=== PATIENT | female | born 1990 | race Caucasian/White ===

== ENCOUNTER 2024-06-08 00:41 | Day surgery (SDC) | payer OTHER, SELFPAY ==
--- NOTE | 2024-05-26 16:30 | SUR.PREOP ---
Report to the Outpatient Waiting Room, entrance under the green pavilion located off [facility], at time _1130_ on date _06/08/2024_. Planned Procedure Time: _1330_.? Time changes happen often and if your time is changed the preop area will call you the afternoon before. - You and your visitor will be asked to self-screen and do not enter if you have any COVID symptoms. Please call surgeon if you need to reschedule. - A mask is optional within the hospital at this time. Patients may have clear liquids (water, carbonated beverages, clear teas, apple juice) until 3 hours (1030) prior to surgery with a maximum of 20 ounces. - No food from midnight until time of surgery and no smoking. This includes no chewing gum, candy or mints. - Infants may have breast milk until 4 hours before surgery, formula 6 hours prior to surgery. - Children will be allowed to drink immediately following surgery.? If applicable, please bring a bottle or sippy cup to assist with drinking. Juice, water, soda, and popsicles are readily available.? For infants on formula, please bring formula the day of surgery.? Pacifiers are allowed. Take only the following medications with a SIP of water on the morning of surgery: _NA_ DO NOT STOP ANY OF YOUR OTHER PRESCRIPTION MEDICATIONS PRIOR TO SURGERY EXCEPT THE FOLLOWING Medications to discontinue per physician _NA_ Date to take last dose_NA_ Please no make-up, nail tajik, hairspray, perfume, deodorant, or body powder the day of surgery.? No jewelry (including any body piercings) or valuables the day of surgery, leave them at home.? Please take a shower or bath the night before, or the morning of, surgery with an antibacterial soap.? Wear comfortable, loose fitting clothing.? Children are encouraged to wear pajamas. - Jewelry must be removed prior to entering the operating room.? Rings and piercings that are not removed may be cut off. - The hospital will not accept responsibility for valuables.? - Please leave all valuables, including medications, at home the day of surgery. If you are going home after surgery, a licensed grab driver must drive you home.? - NO public transportation without another adult if you receive anesthesia. - We recommend that an adult stay with you for 24 hours following discharge. - We also recommend that you do not drive, make important decision, drink alcoholic beverages, or take any drugs that were not prescribed by your health care provider for at least 24 hours after your discharge time. For Pediatric surgeries, we recommend two adults accompany the child home. Follow any additional instructions given to you from your surgeon. Telephone instructions given to _Yvonne_and asked if any additional questions and then verbalized understanding. Patient advised to call surgeon office or pre surgery nurse liaison [phone] if any additional questions.
[2024-05-26 16:41] VITALS: BMI 36.8
[2024-06-08] VITALS (9 sets, daily range): BP systolic 124–160; BP diastolic 76–92; PULSE 68–92; RESP 15–20; TEMP 36.1–37.1; O2SAT 97–100
--- NOTE | 2024-06-08 09:44 | PM.IMHP ---
H&P: HPI History of Present Illness Date/Time: 06/08/24 09:44 Chief Complaint: desires sterilization Narrative: Patient is a 33 year old female who presents for laparoscopic bilateral salpingectomy. She does not desire future childbearing and would like permanent sterilization. She understands this procedure is not reversible. No PSH. She denies abdominal pain, nausea, vomiting, diarrhea, or constipation. Review of Systems Review of Systems: All systems reviewed & are unremarkable except as noted in HPI and below PMFSH Social History Social History Smoking status: Never smoker Second hand tobacco smoke exposure: No Alcohol intake: current Alcohol use details: OCCASIONAL Substance use: never Substance use type: does not use Living arrangements: with family Additional living arrangements comments: with Spiritual care concerns: No Meds Home Medications and Allergies Home Medications ?Medication ?Instructions ?Recorded ?Confirmed ?Type levonorgestrel-ethinyl estradiol 1 tablet PO DAILY 05/26/24 06/08/24 History 0.1 mg-20 mcg tablet (Vienva) Allergies Allergy/AdvReac Type Severity Reaction Status Date / Time legumes Allergy Severe Anaphylaxis Verified 06/08/24 09:56 amoxicillin Allergy Intermediate Nausea and Verified 06/08/24 09:56 Vomiting Exam Const: General: comfortable and no acute distress HENMT: Mouth: Yes moist mucous membranes Resp: Effort & Inspection: normal respiratory effort Cardio: Rate: regular rate Skin: General skin exam: normal color Extrem: General: normal to inspection Psych: Mental Status: mental status grossly normal Assessment and Plan Assessment and plan (1) Encounter for sterilization: Code(s): Z30.2 - Encounter for sterilization Status: Acute Assessment and Plan: - patient does not desire future childbearing - desires permanent sterilization; patient understands this procedure is not reversible - will proceed with laparoscopic bilateral salpingectomy
[2024-06-08 10:03] LABS: BEDSIDEPREGUCG Negative (Negative)
[2024-06-08] MEDS: ACETAMINOPHEN 500 MG TABLET 1000 MG PO (10:20)
--- NOTE | 2024-06-08 10:31 | WPDHPUPDATE1 ---
History and Physical Update Update Date/Time: 06/08/24 10:31 History and Physical has been reviewed, including an updated exam of the patient. There are NO changes in the patient's condition. Risks, benefits, and alternatives have been discussed and questions answered. Patient agrees to proceed with procedure.
[2024-06-08] MEDS: LACTATED RINGERS 1,000 ML 30 ML IV CONT ×2 (10:32→12:12)
[2024-06-08] MEDS: KETOROLAC 15 MG/ML VIAL (*BKC) IV PUSH (10:35)
--- NOTE | 2024-06-08 10:44 | WPDANESEPPF ---
Anes - Initial Pre Proc Eval Procedure: Operation Date: 06/08/24 11:30 Proposed Procedures p Laparoscopic Bilateral Salpingectomy - Reyes Yen MD Date/Time: 06/08/24 10:44 Surgeon: Reyes Yen MD Pre Op Diagnosis: Sterilization Requested Patient Data Age: 33 Gender: F Height: 1.7 m Weight: 109.4 kg Last Vital Signs Temp 37.1 C 06/08/24 09:57 Pulse 92 06/08/24 09:57 Resp 20 06/08/24 09:57 BP 143/76 H 06/08/24 09:57 Pulse Ox 98 06/08/24 09:57 O2 Del Method Room Air 06/08/24 09:57 Allergies Allergy/AdvReac Type Severity Reaction Status Date / Time legumes Allergy Severe Anaphylaxis Verified 06/08/24 09:56 amoxicillin Allergy Intermediate Nausea and Verified 06/08/24 09:56 Vomiting Home Medications ?Medication ?Instructions ?Recorded ?Confirmed ?Type levonorgestrel-ethinyl estradiol 1 tablet PO DAILY 05/26/24 06/08/24 History 0.1 mg-20 mcg tablet (Vienva) oxycodone 5 mg tablet 5 mg PO Q4H PRN Pain #10 tabs 06/08/24 Rx Laboratory Tests 06/08/24 10:02 POC Urine HCG, Qual Negative (Negative) Patient hx anesthesia problems: none Family hx anesthesia problems: none Results Review: All pre-operative results and documents have been reviewed as part of the pre-operative evaluation. [facility] Social History Social History Smoking status: Never smoker Second hand tobacco smoke exposure: No Alcohol intake: current Alcohol use details: OCCASIONAL Substance use: never Substance use type: does not use Living arrangements: with family Additional living arrangements comments: with Spiritual care concerns: No Anes - Eval Final PreProcedure Day of Procedure 06/08/24 10:44 Patient weight: obese Heart: regular rate and rhythm Lungs: clear to auscultation Airway: Mallampati scale class II Neurological: alert and oriented Last oral intake: >/= 8 hours ASA classification: II Emergent: no Anesthetic plan: proceed Anesthesia type and monitoring: general ETT and standard monitoring Results Review: All pre-operative results and documents have been reviewed as part of the pre-operative evaluation. Informed Consent: The patient's anesthetic plan and its attendant risks and benefits were discussed with the patient/family/POA. Questions were solicited and answers provided to the satisfaction of the patient/family/POA.
[2024-06-08] MEDS: SCOPOLAMINE 1 MG PATCH 1 PATCH TRANSDERM (10:49)
--- NOTE | 2024-06-08 11:25 | W.PM.PROC2 ---
Procedure Note - Detailed Date of Procedure 06/08/24 Pre-op Diagnosis Sterilization Requested Post-op Diagnosis Same Procedure Performed laparoscopic bilateral salpingectomy Surgeon Reyes Yen MD Anesthesia General Findings normal appearing bilateral fallopian tubes and ovaries; small pedunculated fibroid on uterine fundus; normal appendix and RUQ Description of Procedure With IV fluids infusing, the patient was taken to the operating room. The patient was placed in supine position. General anesthesia with endotracheal intubation was given. A time-out took place. The patient was placed in dorsal lithotomy position using Rigoberto stirrups and she was prepped and draped in the usual sterile fashion. The bladder was drained using a red rubber catheter. A sterile speculum was placed vaginally, the anterior lip of the cervix was grasped with a single-tooth tenaculum and the acorn uterine manipulator was placed without difficulty. The speculum was removed. The surgeon's gloves were changed and attention was turned to the abdomen. A 5 mm incision was made in the umbilicus. Under direct visualization with the scope, the umbilical port was inserted without difficulty. Another two trocars were placed under direct visualization in the left upper and lower quadrants. The patient was placed in Trendelenburg and inspection of the pelvis noted the above findings. Appropriate pictures were taken. Using the LigaSure devise, a left salpingectomy was performed in the usual fashion. Care was taken to avoid the IP ligament. The salpingectomy went smoothly. The same procedure was repeated on the right side. The instruments were all removed from the abdomen and the CO2 gas was allowed to escape. The three skin incisions were reapproximated with 4-0 Polysorb in a subcuticular manner, followed by skin glue. The acorn manipulator and single tooth tenaculum was removed from the uterus and cervix, respectively. The tenaculum sites were hemostatic. All instruments were removed from the vagina. At the end of the case, instrument, sponge and needle counts were correct x 2. The patient was awakened from general anesthesia and was taken to PACU in stable condition. Estimated Blood Loss 5 Pathology Yes Complications No immediate complications Condition Stable Disposition Same day
[2024-06-08] MEDS: oxyCODONE HCL (*CRX) 5 MG TAB IR PO (12:39)
--- OUTSIDE RECORDS SUMMARY | 2024-06-11 11:08 | XMS_ITS ---
Care Plan - [facility] Created on: June 11, 2024 CEASAR NG : 1990 Sex: Female Author Organization [facility] Address [address] [place] [address] Phone Care Team Providers Care Bicycle Messenger Name Role Phone Unavailable Unavailable Unavailable
--- OUTSIDE RECORDS SUMMARY | 2024-06-11 11:08 | XMS_ITS | Data Portability ---
Author Organization [facility] Address [address] [place] [address] Care Team Providers Care Press Loader Name Role Phone VINITA LEON Primary Care Provider Assessment Encounter Date Assessment Date Assessment LastModified by Organization Details LastModified Time 08/09/2021 08/09/2021 Annual gynecological exam performed. Patient will come back in a year unless there are new symptoms. Suggest Calcium with Vitamin D if not eating in diet. Patient advised to get annual flu shot. Recommend yearly physicals and perform monthly breast exams. Genetic testing is available for patients with family history of cancer. Engage in safe sexual practices, use condoms. Encouraged to have daily exercise. Avoid tobacco and illicit drugs, moderation of alcohol. If BMI greater than 25 dietary consult advised. If you have any questions please call or email. pt will continue to monitor, does not desire intervention at this time, and if pain increases will f/u with MD for excision [email or web address] Not available 08/09/2021 18:40:39 08/30/2022 08/30/2022 Annual gynecological exam performed. Patient will come back in a year unless there are new symptoms. [email or web address] Not available 08/30/2022 09:39:08 09/05/2023 09/05/2023 Annual gynecological exam performed. Patient will come back in a year unless there are new symptoms. [email or web address] Not available 09/05/2023 16:51:54 Plan of Treatment Reminders Order Date Submit Date Provider Last Modified By Organization Details Last Modified Time Details Appointments SURG POST OP 2024 09:00A Karime TAYLOR MD Not available Not available Not available Lab None recorded. Referral None recorded. Procedures None recorded. Surgeries salpingec kike, laparosco pic (SURG) [address] Surgery [facility], [address], [address], 05/21/2024 14:51:49 Imaging None recorded. Medication Orders Sronyx 0.1 mg-20 mcg tablet 2021 022 [facility] [address] In [facility], [address] [place] [address], [address], 08/09/2021 18:38:26 nystatin- triamcino lone 100,000 unit/gram -0.1 % topical ointment 2021 022 [email or web address] [facility] [address] [place] [address], [address], 08/10/2021 09:45:01 Vienva 0.1 mg-20 mcg tablet 2022 023 [id number], [address], [place], [place], [id number], 08/30/2022 09:48:36 Vienva 0.1 mg-20 mcg tablet 2023 024 [id number], [address], [place], [place], [id number], 09/05/2023 17:04:09 Patient TargetsNo targets recorded. Patient InstructionsNo instructions recorded. Reason for Referral None Reported. Results Created Date Observation Date Name Description Value Unit Range Abnormal Flag Note LastModifiedBy Organization Detail LastModifiedTime 08/11/1908/10/2021 IMAGE GUIDE D PAP, REFLE X HPV IF ASCUS ONLY image guided Pap, reflex HPV ASCUS only SEE RESULT S BELOW CASE REPOR T: Cytol ogy Gynec ologi bernard Repor t Case: [id number] Autho carla rhodes Provi katherine: Zayda Mathis NP Colle cted: 08/10 0954 Order ing Locat ion: [place] [facility] Recei maryann: 08/11 0020 First Scree n: Myles Vasquez ed, CT Rescr een: Tobias vásquez, Kelly flores, CT Speci men: Scree naeem Pap - Image d, Cervi x STATE MENT OF ADEQU ACY: Satis facto ry for evalu ation Trans forma tion zone compo nent absen t The absen ce of an endoc ervic al compo nent was confi rmed by an addit ional scree ner. FINAL DIAGN OSIS: Negat mike for Intra epith elial Lesio n or Joleen damico (NIL) . Elect anny yuliet bill d by Tobias vásquez, Kelly flores, CT on 2021 at 9:40 PM ----- ----- ----- ----- ----- ----- ----- ----- ----- ----- ----- ----- ----- ----- ----- ----- ----- ---- COMME NT: Note: This speci men was revie wed by a Cytot echno logis t and/o r Patho logis t (as indic ated in this repor t) after evalu ation using the Thinp rep Imagi ng Syste m. CLINI BERNARD INFOR MATIO N: Menst rual Statu s: LMP (if appli cable ): Clini bernard Histo ry/Pr eviou s Pap: Type of Neopl gui (if appli cable ): Signi fican t Clini bernard Findi ngs: Other Histo ry: Hormo paul (if appli cable ): PAP EDUCA ELIAS L NOTE: The Pap Test is a scree naeem test with an inher ent false negat mike rate. Liqui d-bas ed sampl ing may decre ase, but will not elimi nicol, false negat mike resul ts. A negat mike resul t does not precl ude the prese nce and/o r devel opmen t of disea se, since the prese nce of abnor mal cells in the sampl e depen ds on the locat ion of the lesio n and sampl ing techn ique. Blaise nued regul ar scree naeem is the best metho d of cance r preve ntion . If repor vianca cytol ogic findi ng do not corre late with physi bernard and/o r histo rical findi ngs, furth er inves tigat ion is recom ronaldo d, as clini clarice warra nted. Not Available [facility] (Lab) [address] [facility], [place], [address], 08/17/2021 22:44:11 Result Notes None recorded. Problems Name Problem SNOMED Code Status Onset Date Resolution Date Notes Provider Name and Address Organization Details Recorded Time Specializ ed medical examinati on Active 2013 Routine gynecologi bernard examinatio n;Practice ID: 0001 Not Available [facility] 0 15:08:57 Screening for malignant neoplasm of cervix Active 2013 Pap Smear;Prac minerva ID: 0001 Not Available [facility] 0 15:08:57 Adult health examinati on Active 2014 Routine general medical examinatio n at a health care facility;P jantice ID: 0001 Not Available [facility] 0 15:08:[address] Concept Active 2015 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) (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) w/o abn findings;P ractice ID: 0001 Not Available [facility] 0 15:08:57 Sexual function painful Active 2018 Unspecifie d dyspareuni a;Practice ID: 0001 Not Available [facility] 0 15:08:57 test negative [id number] Active 2018 Encounter for test, result negative;P jantice ID: 0001 Not Available [facility] 0 15:08:57 Family planning surveilla nce Active 2011 Contracept mike surveillan ce, unspecifie d;Recorded Elsewhere: No Locatio n: [facility]: EHR Chroni c: N Practice ID: 0001 Billa ble Time: 11:00:00 AM Not Available [facility] 0 15:08:[address] Concept Active 2016 Encntr for general adult medical exam w/o abnormal findings;R ecorded Elsewhere: No Locatio n: [facility]: EHR Chroni c: N Practice ID: 0001 Billa ble Time: 01:30:00 PM Not Available [facility] 0 15:08:58 Atypical squamous cells of undetermi rosalie significa nce on cervical Papanicol aou smear [id number] Active 2011 Papanicola ou smear of cervix with atypical squamous cells of undetermin ed significan ce (ASC-US);R ecorded Elsewhere: No Locatio n: [facility]: EHR Chroni c: N Practice ID: 0001 Billa ble Time: 11:00:00 AM Not Available [facility] 0 15:08:58 Problem Notes None recorded. Procedures Surgical History Date Name Laterality Status Provider Name and Address Organization Details Recorded Time 4 Date of Last Pap Smear completed uMna Tanner [facility] 04/22/2024 14:32:52 6 extraction of wisdom tooth completed Marlen Russo [facility] 08/09/2021 20:23:59 Imaging Results None recorded. Procedure Notes None recorded. Medical Equipment None Reported. Allergies Allergen ID Allergen Name Allergen Category Reaction Reaction Severity Criticality Documentation Date Start Date Code Code System Note Provider Name and Address Organization Details Recorded Time 91581 peanut allergeni c extract food,medi cation Not available Not available Not available 05/06/2020 72011 8 RxNorm Comme nt: [facility]; Not Available [facility] 0 14:14:50 44127 amoxicill in medicatio n Not available Not available Not available 05/06/2020 723 RxNorm Comme nt: Locat [facility]: [facility]; Not Available [facility] 0 14:14:50 Medications Name Sig Start Date Stop Date Status Note LastModified by Organization Details LastModified Time doxycycli ne hyclate 100 mg capsule 09/04 completed Not Available Not Available Not Available azithromy yunier 250 mg tablet TAKE 2 TABLETS BY MOUTH FOR 1 DAY THEN TAKE 1 TABLET BY MOUTH DAILY FOR 4 DAYS 09/04 completed Not Available Not Available Not Available ofloxacin 0.3 % eye drops INSTILL 2 DROPS IN RIGHT EYE FOUR TIMES DAILY FOR 7 DAYS 09/04 completed Not Available Not Available Not Available nystatin 100,000 unit/gram topical ointment APPLY TO AFFECTED AREA TWICE A DAY 08/30 completed Not Available Not Available Not Available fluconazo le 150 mg tablet 08/30 completed Not Available Not Available Not Available benzonata te 200 mg capsule 09/04 completed Not Available Not Available Not Available nystatin- triamcino lone 100,000 unit/gram -0.1 % topical ointment APPLY TO THE AFFECTED AREA(S) BY TOPICAL ROUTE 2 TIMES PER DAY 2021 active Not Available Not Available Not Avai lable triamcino lone acetonide 0.1 % topical ointment APPLY THIN COAT TO AFFECTED AREA TWICE A DAY 08/30 completed Not Available Not Available Not Available methylpre dnisolone 4 mg tablets in a dose pack FOLLOW PACKAGE DIRECTIO NS 09/04 completed Not Available Not Available Not Available fluticaso ne propionat e 50 mcg/actua tion nasal spray,kaushik pension SHAKE LIQUID AND USE 2 SPRAYS IN EACH NOSTRIL DAILY 09/04 completed Not Available Not Available Not Available dicyclomi ne 10 mg capsule 09/04 completed Not Available Not Available Not Available neomycin- polymyxin -hydrocor t 3.5 mg-10,000 unit/mL-1 % ear drops,kaushik p SHAKE LIQUID AND INSTILL 2 DROPS TO LEFT EAR FOUR TIMES DAILY FOR 7 DAYS 09/04 completed Not Available Not Available Not Available Nuvessa 1.3 % (65 mg/5 gram) vaginal gel insert 1 applicat orful by vaginal route once at bedtime 04/25 completed Prescrib ed Elsewher e: No Locat ion: [facility] M odify By: cfrieder ich Enco unter DateTime : 11/20/19 02:54:59 PM Not Available Not Available Not Available Vienva 0.1 mg-20 mcg tablet TAKE 1 TABLET BY MOUTH EVERY DAY active Not Available Not Available No t Available Vitals Date Recorded Body height Body mass index (BMI) Body weight Systolic blood pressure Diastolic blood pressure Provider Name and Address Organization Details Last Updated DateTime 08/09/2021 170.18 cm 34.9 kg/m2 125395.1 g 129 mm[Hg] 83 mm[Hg] Marlen Russo [facility] 18:15:23 Date Recorded Body height Body mass index (BMI) Body weight Provider Name and Address Organization Details Last Updated DateTime 08/30/2022 170.18 cm 37.3 kg/m2 391164.7 g Claudia Chopra [facility] 08/30/2022 09:39:31 Date Recorded Systolic blood pressure Diastolic blood pressure Provider Name and Address Organization Details Last Updated DateTime 08/30/2022 132 mm[Hg] 80 mm[Hg] Fay Hinojosa, [facility]- [address], [place], [address], [facility] 08/30/2022 10:50:00 Date Recorded Body height Body mass index (BMI) Body weight Systolic blood pressure Diastolic blood pressure Provider Name and Address Organization Details Last Updated DateTime 09/05/2023 170.18 cm 36.8 kg/m2 856702.2 1 g 119 mm[Hg] 78 mm[Hg] Muna Tanner [facility] 4 16:52:20 Date Recorded Body height Body mass index (BMI) Body weight Systolic blood pressure Diastolic blood pressure Provider Name and Address Organization Details Last Updated DateTime 04/22/2024 170.18 cm 37.1 kg/m2 023711.3 9 g 143 mm[Hg] 86 mm[Hg] Muna Tanner [facility] 4 14:32:18 Social History Question Answer Notes LastModified by Organizat ion Details LastModified Time Tobacco Smoking Status Never Smoker Claudia Keysha [facility] 08/30/2022 09:40:58 Do You Have An Advance Directive? No Information n ot available 08/09/2021 What Is Your Level Of Alcohol Consumption? Occasional [email or web address] Information not available 08/09/2021 How Many Years Have You Consumed Alcohol? 7 [email or web address] Information not available 08/09/2021 Are You Blind Or Do You Have Difficulty Seeing? No [email or web address] Information n ot available 08/09/2021 What Is Your Level Of Caffeine Consumption? Moderate [email or web address] Information not available 08/09/2021 How Much Tobacco Do You Chew? None [email or web address] Information not available 08/09/2021 In The 14 Days Before Symptom Onset, Have You Had Close Contact With A Laboratory-confirm ed COVID-19 While That Case Was Ill? No [email or web address] Information n ot available 08/09/2021 In The 14 Days Before Symptom Onset, Have You Had Close Contact With A Person Who Is Under Investigation For COVID-19 While That Person Was Ill? No [email or web address] Information not available 08/09/2021 Have You Been To An Area Known To Be High Risk For COVID-19? No [email or web address] Information not available 08/09/2021 Are You Deaf Or Do You Have Serious Difficulty Hearing? No [email or web address] Information not available 08/09/2021 What Type Of Diet Are You Following? REGULAR [email or web address] Information n ot available 08/09/2021 What Is The Highest Grade Or Level Of School You Have Completed Or The Highest Degree You Have Received? 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 Yes [email or web address] Information not available 08/09/2021 Do You Use Protection During Sex? Always [email or web address] Information not available 08/09/2021 Do You Use Your Seat Belt Or Car Seat Routinely? Yes [email or web address] Information not available 08/09/2021 Do You Have Smoke And Carbon Monoxide Detectors In Your Home? Yes [email or web address] Information not available 08/09/2021 How Much Tobacco Do You Smoke? No Information not available 08/09/2021 Do You Feel Stressed (tense, Restless, Nervous, Or Anxious, Or Unable To Sleep At Night)? [id number] [email or web address] Information not available 08/09/2021 Do You Use Any Illicit Or Recreational Drugs? No [email or web address] Information not available 08/09/2021 Do You Use Sunscreen Routinely? Yes [email or web address] Information not available 08/09/2021 Have You Used IV Drugs? No Information not available 08/09/2021 Sex: Unknown Functional Status Question Answer Note LastModified by Organizat ion Details LastModified Time Are you able to walk? YESWOREST [email or web address] Information not available 08/09/2021 What is your exercise level? Occasional [email or web address] Information not available 08/09/2021 Mental Status None recorded. Family History Relationship Description Onset Age of this Age Resolved Age Notes LastModified by Organization Details LastModified Time Maternal Grandfather Diabetes mellitus [email or web address] Not available 08/09 20:23:06 Maternal Grandfather Hypertensive disorder Not available 08/09 20:23:18 Maternal Grandfather Heart disease Not available 08/09 20:23:29 Paternal Grandfather Diabetes mellitus [email or web address] Not available 08/09 20:23:06 Paternal Grandfather Hypertensive disorder [email or web address] Not available 08/09 20:23:18 Paternal Grandfather Heart disease Not available 08/09 20:23:29 Paternal Grandmother Malignant tumor of breast Not available 08/09 20:23:40 Medical History Condition Response Allergies (Food, seasonal, environmental ) Y Heart Problems N Other N Blood Transfusion N Drug/Latex Allergies/Reactions Y Breast Cancer N Kidney or Bladder Problems N Dermatologic Disorders N Lung Disease N Defects or Inherited Disease N Breast Problem N Eating Disorder N Anemia N Hematologic disorders N Anesthesia Complications N History of STI N Art (IVF or FET) N Deep Vein Thrombosis N Polycystic ovary syndrome N Psychiatric Illness N Anxiety Disorder N Ovarian Cancer N Diabetes N Autoimmune disease N Pulmonary (TB, Asthma) N Hepatitis/Liver Disease N Arthritis N Infertility N Polyps N Acid Reflux (GERD) N History of abnormal pap Y Cancer N No Past Medical History N Abuse/Domestic Violence N Asthma Y Neurologic/Epilepsy N High Cholesterol N Depression/ depression N Pre-Eclampsia N Hypertension N Osteoporosis N Kidney Disease N Gynecological History Statement/Question Response Abnormal Pap Y Date of Last Mammogram Flow Light Date of LMP 04/22/2024 Was last menstrual period normal Y STIs/STDs N HPV Vaccine N Duration of Flow (days) 4 Current Control Method BCPs Are cycles usually normal Y Frequency of Cycle (Q days) 28 Most Recent Bone Density Sexually Active? Y BCPs Age of first menstrual cycle 14 Date of Last Pap Smear 09/05/2023 Sexual Problems? Y Desired Control Method BCPs LMP Approximate N Obstetrics History GPAL:G 0 P 0 0 0 0 Type Value Living 0 Total 0 Past Encounters Encounter ID Performer Location Encounter Start Date Encounter Closed Date Diagnosis/Indication Diagnosis SNOMED-CT Code Diagnosis ICD10 Code Diagnosis Note [id number] [facility] [address] [address] 07/16/2020 09:48:32 07/16/2020 10:25:20 Gynecologic examination [id number] Z01.419 Take Calcium with Vitamin D 1200mg daily if not receiving in daily diet. It is strongly advised to have an annual flu shot and up can obtain at most pharmacies . If you have not had a TDap shot in the last 10 years you should obtain one as well. Discussed with patient & provided with informatio n regarding Gardisil vaccine to prevent the 4 strains for HPV that cause cervical cancer if under age 26. Encourage safe sexual practices, to use condoms and limit partners if not already in a monogamous relationsh ip. Do monthly self breast exams. Have mammogram yearly or every other year depending on family history. BRCA testing is now available for patients with strong genetic history of female cancer. If interested contact the office. Engage in daily exercise of low impact aerobic exercise 45-60 minutes 4-5 times weekly. Avoid tobacco and illicit drugs as well as using moderation with alcohol intake less than 1-2 8 oz beverages daily. This lifestyle behavior pattern will lead to less health conditions and longer life span. If BMI greater than 25 weight watchers or dietary consult advised. Patient received above instructio ns, and questions have been answered. If you have any questions please call or respond to this email. Patient was made aware of the patient portal and may obtain a paper copy of today's plan if desired. Take Calcium with Vitamin D 1200mg daily if not receiving in daily diet. It is strongly advised to have an annual flu shot and up can obtain at most pharmacies . If you have not had a TDap shot in the last 10 years you should obtain one as well. Discussed with patient & provided with informatio n regarding Gardisil vaccine to prevent the 4 strains for HPV that cause cervical cancer if under age 26. Encourage safe sexual practices, to use condoms and limit partners if not already in a monogamous relationsh ip. Do monthly self breast exams. Have mammogram yearly or every other year depending on family history. BRCA testing is now available for patients with strong genetic history of female cancer. If interested contact the office. Engage in daily exercise of low impact aerobic exercise 45-60 minutes 4-5 times weekly. Avoid tobacco and illicit drugs as well as using moderation with alcohol intake less than 1-2 8 oz beverages daily. This lifestyle behavior pattern will lead to less health conditions and longer life span. If BMI greater than 25 weight watchers or dietary consult advised. Patient received above instructio ns, and questions have been answered. If you have any questions please call or respond to this email. Patient was made aware of the patient portal and may obtain a paper copy of today's plan if desired. No issues or questions this year. Option Pap q3-5yrs per asccp unless otherwise indicated. Low risk Monogamous x 12yrs with only 1 sexual partner in life time at this point [facility] ion care management [id number] Z30.9 happy on current regimen RF sent x 1yr [id number] Zayda Patino CNM [place] [address] [address] 08/09/2021 17:48:28 08/09/2021 18:46:57 Vaginal irritation 926772710 N89.8 Gynecologi c examination 40795412 Z01.419 [id number] [facility] [address] [address] 08/30/2022 09:31:14 08/30/2022 10:57:25 Gynecologic examination 68389023 Z01.419 Take Calcium with Vitamin D 1200mg daily if not receiving in daily diet. It is strongly advised to have an annual flu shot and up can obtain at most pharmacies . If you have not had a TDap shot in the last 10 years you should obtain one as well. Discussed with patient & provided with informatio n regarding Gardisil vaccine to prevent the 4 strains for HPV that cause cervical cancer if under age 26. Encourage safe sexual practices, to use condoms and limit partners if not already in a monogamous relationsh ip. Do monthly self breast exams. Have mammogram yearly or every other year depending on family history. BRCA testing is now available for patients with strong genetic history of female cancer. If interested contact the office. Engage in daily exercise of low impact aerobic exercise 45-60 minutes 4-5 times weekly. Avoid tobacco and illicit drugs as well as using moderation with alcohol intake less than 1-2 8 oz beverages daily. This lifestyle behavior pattern will lead to less health conditions and longer life span. If BMI greater than 25 weight watchers or dietary consult advised. Patient received above instructio ns, and questions have been answered. If you have any questions please call or respond to this email. Patient was made aware of the patient portal and may obtain a paper copy of today's plan if desired. Take Calcium with Vitamin D 1200mg daily if not receiving in daily diet. It is strongly advised to have an annual flu shot and up can obtain at most pharmacies . If you have not had a TDap shot in the last 10 years you should obtain one as well. Discussed with patient & provided with informatio n regarding Gardisil vaccine to prevent the 4 strains for HPV that cause cervical cancer if under age 26. Encourage safe sexual practices, to use condoms and limit partners if not already in a monogamous relationsh ip. Do monthly self breast exams. Have mammogram yearly or every other year depending on family history. BRCA testing is now available for patients with strong genetic history of female cancer. If interested contact the office. Engage in daily exercise of low impact aerobic exercise 45-60 minutes 4-5 times weekly. Avoid tobacco and illicit drugs as well as using moderation with alcohol intake less than 1-2 8 oz beverages daily. This lifestyle behavior pattern will lead to less health conditions and longer life span. If BMI greater than 25 weight watchers or dietary consult advised. Patient received above instructio ns, and questions have been answered. If you have any questions please call or respond to this email. Patient was made aware of the patient portal and may obtain a paper copy of today's plan if desired. Pap sent STD Screen declined Genetic Screen discussed Colon Screen na Dexa Screen na Routine Labs [facility] [id number] Z30.9 happy on current regimen RF sent x 1yr [id number] [facility] [address] [address] 09/05/2023 16:46:13 09/05/2023 17:12:06 Gynecologic examination [id number] Z01.419 Take Calcium with Vitamin D 1200mg daily if not receiving in daily diet. It is strongly advised to have an annual flu shot and up can obtain at most pharmacies . If you have not had a TDap shot in the last 10 years you should obtain one as well. Discussed with patient & provided with informatio n regarding Gardisil vaccine to prevent the 4 strains for HPV that cause cervical cancer if under age 26. Encourage safe sexual practices, to use condoms and limit partners if not already in a monogamous relationsh ip. Do monthly self breast exams. Have mammogram yearly or every other year depending on family history. BRCA testing is now available for patients with strong genetic history of female cancer. If interested contact the office. Engage in daily exercise of low impact aerobic exercise 45-60 minutes 4-5 times weekly. Avoid tobacco and illicit drugs as well as using moderation with alcohol intake less than 1-2 8 oz beverages daily. This lifestyle behavior pattern will lead to less health conditions and longer life span. If BMI greater than 25 weight watchers or dietary consult advised. Patient received above instructio ns, and questions have been answered. If you have any questions please call or respond to this email. Patient was made aware of the patient portal and may obtain a paper copy of today's plan if desired. Pap/hpv sentSTD Screen declinedGe netic Screen discussedC olon Screen naDexa Screen naRoutine Labs PCP [facility] ion care management [id number] Z30.9 happy on current regimen RF sent x 1yr [id number] RENU TAYLOR MD [place] [address] [address] 04/22/2024 14:23:57 04/22/2024 16:23:58 Sterilization requested [id number] Z30.2 - patient desires permanent sterilizat ion- discussed risks, benefits, and alternativ es of bilateral salpingect brianne, including risks of bleeding, infection and injury to surroundin g organs. Also discussed alternativ e contracept mike options including partner vasectomy and patient declines.- patient to call clinic to schedule surgery Health Concerns Section Related Observation LastModified by Organization Detai ls LastModified Time None Recorded Concern Status LastModified by Organization Details LastModified Time None Recorded Advance Directives Directive N: Payers Encounter Date Sequence Insurance Name Policy Number Policy Bauman Covered Member ID Bauman Member ID Guarantor Name 08/09/2021 1 [employer] - [facility] - CHOICE PLUS (PPO) [id number] Yvonne E Lugo [id number] Yvonne Lugo 08/30/2022 1 [facility] [id number] Yvonne Lugo [id number] Yvonne Lugo 09/05/2023 1 [facility] [id number] Yvonne Lugo [id number] Yvonne Lugo 04/22/2024 1 [facility] [id number] Yvonne Lugo [id number] Yvonne Lugo Notes Date Note Type Note Provider Name and Address Organization Details Recorded Time 08/09/2021 text/html Annual GYNReport ed bypatient.Menstrual cycle:Normal menses Urinary symptoms:No hematuria; No incontinence Vulva:No genital lesion Vagina:Normal vaginal discharge Breast:No breast pain; No breast lump; No nipple discharge Current Contraception:Satisf ied with current contraception; Oral contraceptives Sexual complaints:No sexual complaints; No pain during intercourse; Normal libido Menopausal Symptoms:No menopausal symptoms; Normal vaginal lubrication Psychological symptoms:No depression; No anxiety; No PMDD Preventive measures:Encourage self breast examination; Encourage regular exercise; Encourage no tobacco useNotes:about once a month right before cycle, feels like a barrier and unable to penetrate for sex, resolves on its own, happy with bcm Zayda Patino, BE[facility] [address], [place], [address], [facility] 08/09/2021 18:41:01 08/30/2022 text/html Annual GYNReport ed bypatient.History:no gynecologic complaints Menstrual cycle:Normal menses Urinary symptoms:No hematuria; No incontinence Vulva:No genital lesion Vagina:Normal vaginal discharge Breast:No breast pain; No breast lump; No nipple discharge Current Contraception:Satisf ied with current contraception; Oral contraceptives Sexual complaints:No sexual complaints; No pain during intercourse; Normal libido Menopausal Symptoms:No menopausal symptoms; Normal vaginal lubrication Psychological symptoms:No depression; No anxiety; No PMDD Preventive measures:Encourage self breast examination; Encourage regular exercise; Encourage no tobacco use; Encourage regular mammograms starting age 40; Followed with yearly pap smears Fay Hinojosa [facility] [address], [place], [address], [facility] 08/30/2022 10:51:37 09/05/2023 text/html Annual GYNReport ed bypatient.History:no gynecologic complaints Menstrual cycle:Normal menses Urinary symptoms:No hematuria; No incontinence Vulva:No genital lesion Vagina:Normal vaginal discharge Breast:No breast pain; No breast lump; No nipple discharge Current Contraception:Satisf ied with current contraception; Oral contraceptives Sexual complaints:No sexual complaints; No pain during intercourse; Normal libido Menopausal Symptoms:No menopausal symptoms; Normal vaginal lubrication Psychological symptoms:No depression; No anxiety; No PMDD Preventive measures:Encourage self breast examination; Encourage regular exercise; Encourage no tobacco use; Encourage regular mammograms starting age 40; Followed with yearly pap smears MEDINA Reyes [address], [place], [address], [facility] 09/05/2023 17:10:34 04/22/2024 text/html Patient presents for discussion of permanent sterilization. She has completed childbearing and would like a permanent form of control. No PSH. She has discussed her options and is strongly considering tubal ligation. RENU TAYLOR MD [address], [place], [address], [facility] 04/22/2024 16:19:56 OBGyn Episode No OBEpisode recorded.
--- OUTSIDE RECORDS SUMMARY | 2024-06-11 11:08 | XMS_ITS ---
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 Role Phone Unavailable Unavailable Unavailable Plan of Treatment Findings Encounter Date Continue current medication SICK VISIT with MUKESH MARTELL FUNCTIONAL TESTER-C 04/29/2020 Last Documented On 0 6:00PM ; [facility] The options include close observation SI CK VISIT with KRISTIAN MARTELL FUNCTIONAL TESTER-C 04/29/2020 Last Documented On 0 6:00PM ; [facility] Assessments Includes: Assessments for all patient encounters No Assessments Recorded Medical Equipment - Implanted Devices Includes: Current and historical Devices No Medical Equipment Recorded Medications Administered Includes: Administered Medications in patient's chart No Administered Medications Recorded Results Includes: Results from 06/11/2023 through 06/11/2024 No Results Recorded For Specified Dates History of Present Illness History of Present Illness not supported for this document type No History of Present Illness Recorded Social History No Social History Recorded - Smoking Status Unknown Medical History Includes: Medical History in patient's chart Description Last Updated Exposure to a contagious disease 020 Last Documented On 0 6:00PM ; [facility] Exposure to a viral disease 04/29/2020 Last Documented On 0 6:00PM ; [facility] Taking OTC medications 04/29/2020 Last Documented On 0 6:00PM ; [facility] Family History Includes: Family History in patient's chart No Family History Recorded Review of Systems Review of Systems not supported for this document type No Review of Systems Recorded Mental Status No Mental Status Recorded Functional Status No Functional Status Recorded Physical Exam Physical Exam not supported for this document type No Physical Exam Recorded Allergies Includes: Active, inactive, and resolved Allergies Substance Type Reaction Onset Date Resolved Date Statu s Amoxicillin Allergy 04/29/2020 Active Last Documented On 0 4:53PM ; [facility] Clinical Notes Includes: Signed Clinical Notes starting from 06/08/2022 No Clinical Notes Recorded
--- OUTSIDE RECORDS SUMMARY | 2024-06-11 11:08 | XMS_ITS | Clinical Summary ---
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 STATES THAT SHE HAS A COUGH AND HEADACHES SINCE SATURDAY Plan of Treatment - The options include close observation - Last Documented On 04/29/2020 6:00PM ; [facility] - Continue current medication - Last Documented On 04/29/2020 6:00PM ; [facility] Rapid COVID testing performed today and was negative. Call with development of additional or worsening symptoms. Go to ED with severe respiratory symptoms. - Last Documented On 04/29/2020 6:00PM ; [facility] Due to close contact with a person who has COVID-19, patient was advised to: Stay home until 14 days after last contact. Check temperature twice a day and watch for symptoms of COVID-19. If possible, stay away from people who are higher-risk for getting very sick from COVID-19. - Last Documented On 04/29/2020 6:00PM ; [facility] Assessments Includes: Assessments from this encounter No Assessments Recorded Medical Equipment - Implanted Devices Includes: Current Devices No Medical Equipment Recorded Medications Administered Includes: Administered Medications from this encounter No Administered Medications Recorded Vital Signs Includes: Vital Signs from this encounter Vital Name 04/29/2020 04:55P Pulse Rate-Sitting (bpm) 74 Temp-Oral (F) 98.9 Oxygen Saturation (%) 98 Last Documented: On 04/29/2020 4:55PM ; [facility] Results Includes: Results discussed during this encounter Rapid COVID Test [facility] Ordered by KRISTIAN PATEL on 04/19 Collected: Reported: 04/29/2020 17:05 Last Documented On 0 5:05PM ; [facility] Reviewed on 04/29/2020; All test results are final unless otherwise noted. Rapid COVId NEG N (Normal) Last Documented On 0 5:05PM ; [facility] Int. QC Acceptable N (Normal) Last Documented On 0 5:05PM ; [facility] Lot # and Exp. Date [id number] 08/09/2020 N (Normal) Last Documented On 0 5:05PM ; [facility] History of Present Illness Includes: History of Present Illness from this encounter HPI YVONNE NG is a 29 year old female. - Allergy list reviewed - Medication reconciliation performed - Not feeling poorly (malaise) - No fever - Headache - No sinus pain - No swollen glands in the neck - No ear symptoms - No earache - No nasal discharge - No postnasal drip - No nasal passage blockage (stuffiness) - No sneezing - No sore throat - No chest pain or discomfort - Cough - Not feeling congested in the chest - No shortness of breath - Not coughing up sputum - No wheezing - Normal appetite - No nausea - No vomiting - No abdominal pain - No diarrhea - No myalgias Yvonne is a 29-year-old female patient that presented to the respiratory clinic for cough and headache that started three days ago. She reports that she was exposed to a co-worker that tested positive for COVID with last exposure on 04/25/2020. Social History No Social History Recorded - Smoking Status Unknown Procedures and Surgical History Includes: Procedures from this encounter Procedures Code Diagnosis Performing Provider Service L ocation Service Date Pt to use OTC fever/pain product as needed per product instruction.~ Last Documented On 0 5:58PM ; [facility] Pt to use OTC expectorant product as nee ded per product instruction.~ Last Documented On 0 5:58PM ; [facility] Pt to use OTC cough product as needed pe r product instruction.~ Last Documented On 0 5:58PM ; [facility] plan of care reviewed and agreed to Last Documented On 0 5:58PM ; [facility] patient to call if symptoms worsen or not improved to update patient's status as needed Last Documented On 0 5:58PM ; [facility] review of medications documented 1160F Last Documented On 0 4:55PM ; [facility] Medical History Includes: Medical History addressed during this encounter Description Last Updated Exposure to a contagious disease 020 Last Documented On 0 6:00PM ; [facility] Exposure to a viral disease 04/29/2020 Last Documented On 0 6:00PM ; [facility] Taking OTC medications 04/29/2020 Last Documented On 0 6:00PM ; [facility] Family History Includes: Family History addressed during this encounter No Family History Recorded Review of Systems Includes: Review of Systems from this encounter Systemic: No fever. Head: Headache. Otolaryngeal: No earache, no nasal discharge, and no sore throat. Cardiovascular: No chest pain or discomfort. Pulmonary: Cough. No wheezing. Gastrointestinal: No vomiting, no abdominal pain, and no diarrhea. Mental Status Includes: Mental Status from this encounter No Mental Status Recorded Functional Status Includes: Functional Status from this encounter No Functional Status Recorded Physical Exam Includes: Physical Exam from this encounter Allergies Includes: Active Allergies Substance Type Reaction Onset Date Resolved Date Statu s Amoxicillin Allergy 04/29/2020 Active Last Documented On 0 4:53PM ; [facility] Encounters Encounter Provider Location Date Check-In Time Check-Out Time Diagnosis SICK VISIT KRISTIAN PATEL [facility] 0 4:33PM 5:21PM Clinical Notes Includes: Clinical Notes from this encounter No Clinical Notes Recorded
== END 2024-06-08 13:38 | disposition home or self-care (01) ==
PROVIDERS: Anesthesiology; Visit Provider Obstetrics & Gynecology
PROC: (CPT 49320; principal; 2024-06-08 11:30)
DX: Z30.2 Encounter for sterilization (principal); D25.9 Leiomyoma of uterus, unspecified; E66.9 Obesity, unspecified; Z68.37 Body mass index [BMI] 37.0-37.9, adult
CPT/HCPCS: 58661; 88302; A9270; J1100; J1200; J1885; J2003; J2250; J2405; J2704; J3010; J7120